=== PATIENT | female | born 1950 | race Hispanic/Latino ===

== ENCOUNTER 2018-07-11 10:03 | Outpatient (CLI) | payer MEDICARE | END 2018-07-11 10:04 | disposition home or self-care (01) | LOC: BICMAMMO 10:03 | PROVIDERS: ATTEND Internal Medicine Hematology & Oncology | DX: Z08 Encounter for follow-up examination after completed treatment for malignant neoplasm (principal); R92.1 Mammographic calcification found on diagnostic imaging of breast; N64.89 Other specified disorders of breast; Z85.3 Personal history of malignant neoplasm of breast; Z98.890 Other specified postprocedural states | CPT/HCPCS: 77066; G0279 ==